=== PATIENT | male | born 1950 | race Two or more races ===

== ENCOUNTER 2016-12-10 09:22 | Day surgery (SDC) | payer OTHER ==
[2016-12-06 16:29] VITALS: BMI 20.9
[~2016-12-10 09:22] MED LIST: CYCLOPENTOLATE HCL 1% OPHTH SOLN 2 ML BOTTLE OD SCH; GENTAMICIN SULFATE 0.3% OPHTHALMIC (EYE DROPS) 5ML BOTTLE OD SCH; KETOROLAC TROMETHAMINE 0.5% 5 ML BOTTLE OPTHALMIC OD SCH; PHENYLEPHRINE 2.5% OPHTH SOLN 15 ML BOTTLE OD SCH; TROPICAMIDE 1% OPHTH SOLN 15 ML BOTTLE OD SCH
[2016-12-10] MEDS: CYCLOPENTOLATE HCL 1% OPHTH SOLN 2 ML BOTTLE ONE ×5 (09:45→10:05)
[2016-12-10] MEDS: PHENYLEPHRINE 2.5% OPHTH SOLN 15 ML BOTTLE ONE ×4 (09:45→10:00)
[2016-12-10] MEDS: TROPICAMIDE 1% OPHTH SOLN 15 ML BOTTLE ONE ×5 (09:45→10:05)
[2016-12-10] MEDS: GENTAMICIN SULFATE 0.3% OPHTHALMIC (EYE DROPS) 5ML BOTTLE ONE ×4 (09:45→10:00)
[2016-12-10] MEDS: KETOROLAC TROMETHAMINE 0.5% 5 ML BOTTLE OPTHALMIC ONE ×5 (09:45→10:05)
[2016-12-10] MEDS ORDERED: MIDAZOLAM HCL 2 MG/2 ML SINGLE DOSE VIAL ONE (10:21)
[2016-12-10] MEDS ORDERED: BUPIVACAINE HCL/PF 0.5% (5MG/ML) 10 ML VIAL ONE (10:33)
[2016-12-10] MEDS ORDERED: POVIDONE-IODINE 5% OPHTHALMIC PREP 30 ML SOLUTION ONE (10:33)
[2016-12-10] MEDS ORDERED: LIDOCAINE HCL/PF 2% SDV 5ML VIAL ONE ×2 (10:33→10:51)
[2016-12-10] MEDS ORDERED: ACETYLCHOLINE 1:100 INTRA-OCUL 20 MG/2 ML KIT ONE (10:34)
[2016-12-10] MEDS ORDERED: PROPOFOL 20 ML ONE (10:51)
[2016-12-10] MEDS ORDERED: TRYPAN BLUE 0.5 ML DISP.SYRIN ONE (10:59)
[2016-12-10] MEDS ORDERED: ACETAMINOPHEN 325 MG TABLET (FP) PO PRN (11:59)
[2016-12-10 12:14] VITALS: TEMP 97.6
[2016-12-10 12:39] VITALS: BP 99/57; PULSE 52
--- NOTE | 2016-12-10 15:10 | OP ---
DATE OF OPERATION: 12/10/2016 PREOPERATIVE DIAGNOSIS: Hypermature cataract, right eye. POSTOPERATIVE DIAGNOSIS: Hypermature cataract, right eye. PROCEDURE: mature cataract extraction via phacoemulsification with use of trypan blue and with posterior chamber lens implant, right eye. SURGEON: Momo López MD [employer] APPRENTICE: Nathalia Ramírez MD ANESTHESIA: Regional with sedation. ESTIMATED BLOOD LOSS: Less than 1 mL. COMPLICATIONS: None. SPECIMENS: None. DESCRIPTION OF PROCEDURE: The patient was identified in the holding area. After all risks, benefits, and alternatives were explained to the patient, informed consent was obtained. The right eye was marked with a marking pen. The patient then entered the operating room on an eye stretcher. After a formal timeout was performed, a 3-mL injection of equal parts of 2% lidocaine with epinephrine and 0.5% Marcaine was given around the right eye. The right eye was then prepped and draped in the usual sterile fashion. An eyelid speculum was placed beneath the eyelids of the right eye. A superotemporal paracentesis incision was created using a 15-degree blade. Intraocular air bubble was injected using a syringe, and trypan blue was then used to stain the anterior capsule in its entirety. BSS was then administered to the right eye to remove all excess trypan blue from the eye. Viscoelastic was injected into the anterior chamber to fill the anterior chamber. A 2.4-mm keratome blade was then used to make an inferotemporal incision. A 360-degree, continuous curvilinear capsulorrhexis was then created using bent cystotome and Utrata forceps. A light hydrodissection was performed, and phacoemulsification was introduced to disassemble and remove the nucleus in its entirety. Irrigation/aspiration was then used to remove any remaining cortical material from the eye. The capsular bag was then refilled using viscoelastic. An Devon model SN60WF with a power of 24.5 diopters, serial number [id number] was inspected and found to be defect free and injected into the capsular bag. The anterior chamber was reformed using balanced saline solution. As an addendum, prior to injecting the intraocular lens, the capsular bag was filled with viscoelastic. Intracameral injections of Miochol and Miostat were then administered to the right eye, and the pupil came down and was round. All wounds were hydrated with balanced saline solution and found to be watertight. The anterior chamber was deep. However, after further inspection, the main wound started to leak. A 10-0 interrupted nylon suture was then placed at the main wound, and the knot was buried. Afterwards, all wounds were inspected and found to be defect free. The anterior chamber was deep. The lens was perfectly centered in the capsular bag. There was a red reflex present, and the eye had an adequate pressure. Topical antibiotic eye drops and ointment were then administered to the right eye. The eyelid speculum was removed from the right eye. The right eye was patched and shielded. The patient tolerated the procedure well and left the operating room in stable condition to follow up in the eye clinic tomorrow morning at 9:00. MOMO LÓPEZ M.D. [id number]
== END 2016-12-10 12:45 | disposition home or self-care (01) ==
LOC: FASU 09:22
PROVIDERS: ATTEND Ophthalmology
PROC: 08RJ3JZ Replacement of Right Lens with Synthetic Substitute, Percutaneous Approach (ICD-10-PCS; principal; 2016-12-10 11:08)
DX: H25.89 Other age-related cataract (principal)